=== PATIENT | male | born 1945 | race Caucasian/White ===

== ENCOUNTER 2017-08-18 08:25 | Day surgery (SDC) | payer MEDICARE, OTHER ==
[~2017-08-18 08:25] MED LIST: Midazolam 1 MG/ML 2 ML SDV ONE; fentaNYL 100 MCG/2 ML SDV ONE
[2017-08-18] MEDS ORDERED: fentaNYL 100 MCG/2 ML SDV IV ONE ×3 (08:26→09:33)
[2017-08-18] MEDS ORDERED: Midazolam 1 MG/ML 2 ML SDV IV ONE ×7 (08:26→09:54)
[2017-08-18] MEDS ORDERED: Lactated Ringers 1,000 ML IV SCH (09:00)
[2017-08-18 11:53] VITALS: BP 104/62
--- NOTE | 2017-08-18 15:14 | OR ---
DATE: 08/18/2017 PREOPERATIVE DIAGNOSIS: Personal history of prior colon polyps and rectal bleeding. POSTOPERATIVE DIAGNOSIS: Personal history of prior colon polyps and rectal bleeding. PROCEDURE: Total colonoscopy. ANESTHESIA: Conscious sedation with IV Versed and fentanyl. SPECIMEN: None. OPERATIVE FINDINGS: Normal colonoscopy. RECOMMENDATION: Followup screening colonoscopy in 10 years. However, the patient will be 82 at that time, and screening is usually not recommended after that. He should have a colonoscopy for symptoms only. INDICATION FOR PROCEDURE: This 72-year-old male had a colonoscopy approximately 3 years ago with reported removal of multiple polyps. He does have intermittent rectal bleeding but has noted hemorrhoids. PROCEDURE IN DETAIL: After adequate preparation, a colonoscope was inserted into the rectum. This was passed all the way to the cecum. Confirmation of the cecum was made by visualization of the ileocecal valve, the appendiceal opening, and palpation in the right lower quadrant. A photograph of the cecum was taken to document intubation. The bowel prep was very good on withdrawal of the scope. No abnormalities were noted. He has no masses, polyps, bleeding sites, or evidence of colitis. Rectal examination is normal. He does have external hemorrhoids, but no internal hemorrhoids are particularly noted. Air was suctioned from the colon, and the scope was removed. [facility] /[id number]
== END 2017-08-18 12:00 | disposition home or self-care (01) ==
LOC: DL.ENDO 08:25
PROVIDERS: ATTEND Surgery
DX: Z12.11 Encounter for screening for malignant neoplasm of colon (principal); K64.4 Residual hemorrhoidal skin tags; I10 Essential (primary) hypertension; E78.00 Pure hypercholesterolemia, unspecified; K21.9 Gastro-esophageal reflux disease without esophagitis; E11.9 Type 2 diabetes mellitus without complications; I73.9 Peripheral vascular disease, unspecified; Z86.010 Personal history of colon polyps; Z98.890 Other specified postprocedural states; Z79.84 Long term (current) use of oral hypoglycemic drugs; Z79.899 Other long term (current) drug therapy
CPT/HCPCS: G0105; J2250; J3010; J7120; 45378

== ENCOUNTER 2017-09-12 14:16 | Emergency (ER) | payer MEDICARE, OTHER ==
[2017-09-12 14:34] VITALS: BP 156/82
--- NOTE | 2017-09-12 14:53 | CR ---
Clinical history: 72-year-old male chest pain. Interpretation: Upright AP portable chest film unremarkable. Normal cardiac silhouette without cephalization of vascular flow, signs of alveolar edema or dependen t pleural effusion (external quality assurance monitor leads). No lung mass or hilar lymphadenopathy. No focal lobar pneumonia. No atelectasis/collapse. No pneumothorax.
[2017-09-12 14:59] LABS: CHLORIDE,CL 103 mmol/L (101-111); SODIUM,NA 137 mmol/L (135-145)
--- NOTE | 2017-09-12 15:25 | EDM.PDOC ---
ED HPI GENERAL MEDICAL PROBLEM - General Chief Complaint: Chest Pain Stated Complaint: CHEST PAIN Time Seen by Provider: 09/12/17 14:45 Source of Information: Reports: Patient History Limitations: Reports: No Limitations - History of Present Illness INITIAL COMMENTS - FREE TEXT/NARRATIVE: This 72 yo male patient reports to the ED with a 4 day history of intermittent chest pain and diffuse chest tightness. The patient reports he was putting up some lights last Monday when he believes he may have "stretched" something. Since that time, the patient reports he has been experiencing episodes of chest pains and chest wall tightness. The patient reports that today he has had episodes of sharp pains in the left lateral chest and diffuse tightness across the front of his chest. The patient reports he has been seen for similar symptoms in the past, but has also had a large heart attack in the past. The patient reports his catapult and arresting gear officer gave him a good report card after the last visit. The patient reports he has been taking his medications as prescribed. Onset Date: 09/08/17 Duration: Intermittent Location: Reports: Chest Quality: Reports: Ache (intermittent sharp aching pains throughout his chest), Dull (most of the time (tightness)) Severity: Moderate Improves with: Reports: None Worsens with: Reports: None Associated Symptoms: Reports: No Other Symptoms Mid-Sternal Chest Pain Score (Numeric/FACES): 3 - Related Data Allergies Allergy/AdvReac Type Severity Reaction Status Date / Time No Known Allergies Allergy Verified 08/18/17 08:45 Home Meds: Home Meds Acetaminophen/HYDROcodone [HYDROcodone-Acetaminophen 5-500] 0.5 tab PO DAILY PRN 08/13/14 [History] Baclofen 10 mg PO DAILY 08/13/14 [History] Metoprolol Succinate [Toprol Xl] 50 mg PO DAILY 08/13/14 [History] Pantoprazole [ProTONIX] 40 mg PO BID 08/13/14 [History] Simvastatin [Zocor] 40 mg PO DAILY 08/13/14 [History] amLODIPine [Norvasc] 5 mg PO DAILY 08/13/14 [History] buPROPion [Wellbutrin XL] 150 mg PO DAILY 08/13/14 [History] metFORMIN [Glucophage] 1,000 mg PO BID 08/13/14 [History] Cyclobenzaprine [Flexeril] 1 tab PO TID PRN 10/14/14 [History] Pramipexole [Mirapex] 1 tab PO BEDTIME 10/14/14 [History] Past Medical History HEENT History: Reports: Impaired Vision Cardiovascular History: Reports: High Cholesterol, Hypertension, [place], PVD Respiratory History: Reports: None Gastrointestinal History: Reports: Colon Polyp, GERD Genitourinary History: Reports: None, BPH Musculoskeletal History: Reports: Arthritis, Back Pain, Chronic Neurological History: Reports: Other (See Below) Other Neuro History: [facility] Psychiatric History: Reports: None Endocrine/Metabolic History: Reports: Diabetes, Type II Hematologic History: Reports: None Immunologic History: Reports: None Oncologic (Cancer) History: Reports: None Dermatologic History: Reports: None - Infectious Disease History Infectious Disease History: Reports: Chicken Pox, Measles, Mumps, Shingles - Past Surgical History HEENT Surgical History: Reports: Cataract Surgery, Tonsillectomy Cardiovascular Surgical History: Reports: Other (See Below) Other Cardiovascular Surgeries/Procedures: ARTERIAL STENTS Respiratory Surgical History: Reports: None GI Surgical History: Reports: Cholecystectomy, Colonoscopy, Polypectomy Musculoskeletal Surgical History: Reports: Other (See Below) Other Musculoskeletal Surgeries/Procedures:: HX OF HIP BURSA INJECTIONS. back and neck surg Social & Family History - Family History Family Medical History: Noncontributory Cardiac: Reports: CAD Neurological: Reports: Other (See Below) Other Neurological Family History: RESTLESS LEG SYNDROME - Tobacco Use Smoking Status *Q: Current Every Day Smoker Years of Tobacco use: 50 Packs/Tins Daily: 0.5 - Caffeine Use Caffeine Use: Reports: Coffee, Soda, Tea Caffeine Use Comment: 60oz - Alcohol Use Days Per Week of Alcohol Use: 0 - Recreational Drug Use Recreational Drug Use: No ED ROS GENERAL - Review of Systems Review Of Systems: ROS reveals no pertinent complaints other than HPI. ED EXAM, GENERAL - Physical Exam Exam: See Below Exam Limited By: No Limitations General Appearance: Alert, WD/WN, Moderate Distress Eye Exam: Bilateral Eye: EOMI, Normal Inspection, PERRL Ears: Normal External Exam, Normal Canal, Hearing Grossly Normal, Normal TMs Nose: Normal Inspection, Normal Mucosa, No Blood Throat/Mouth: Normal Inspection, Normal Lips, Normal Teeth, Normal Gums, Normal Oropharynx, Normal Voice, No Airway Compromise Head: Atraumatic, Normocephalic Neck: Normal Inspection, Supple, Non-Tender, Full Range of Motion Respiratory/Chest: No Respiratory Distress, Lungs Clear, Normal Breath Sounds, No Accessory Muscle Use, Chest Non-Tender Cardiovascular: Normal Peripheral Pulses, Regular Rate, Rhythm, No Edema, No Gallop, No JVD, No Murmur, No Rub GI/Abdominal: Normal Bowel Sounds, Soft, Non-Tender, No Organomegaly, No Distention, No Abnormal Bruit, No Mass (Male) Exam: Deferred Rectal (Males) Exam: Deferred Back Exam: Normal Inspection, Full Range of Motion, NT Extremities: Normal Inspection, Normal Range of Motion, Non-Tender, Normal Capillary Refill, Pedal Edema (2+ chronic) Neurological: Alert, Oriented, CN II-XII Intact, Normal Cognition, Normal Gait, Normal Reflexes, No Motor/Sensory Deficits Psychiatric: Normal Affect, Normal Mood Skin Exam: Warm, Dry, Intact, Normal Color, No Rash Lymphatic: No Adenopathy Course - Vital Signs Last Recorded V/S: Last Vital Signs Temp 36.8 C 09/12/17 14:32 Pulse 106 H 09/12/17 14:32 Resp 14 09/12/17 14:32 BP 156/82 H 09/12/17 14:32 Pulse Ox 98 09/12/17 14:32 - Orders/Labs/Meds Orders: Active Orders 24 hr Category Date Time Status EKG Documentation Completion [RC] URGENT Care 09/12/17 14:18 Active Labs: Laboratory Tests 09/12/17 09/12/17 Range/Units 14:29 14:29 WBC 6.7 (5.0-10.0) 10^3/uL RBC 4.62 (4.6-6.2) 10^6/uL Hgb 12.6 L (14.0-18.0) g/dL Hct 39.1 L (40.0-54.0) % MCV 84.6 (80-100) fL MCH 27.3 (27.0-34.0) pg MCHC 32.2 L (33.0-35.0) g/dL Plt Count 189 (150-450) 10^3/uL Neut % (Auto) 37.2 L (42.2-75.2) % Lymph % (Auto) 47.7 (20.5-50.1) % [place] % (Auto) 12.9 H (2-8) % Eos % (Auto) 1.7 (1.0-3.0) % Baso % (Auto) 0.5 (0.0-1.0) % Sodium 137 (135-145) mmol/L Potassium 3.6 (3.6-5.0) mmol/L Chloride 103 (101-111) mmol/L Carbon Dioxide 25.0 (21.0-31.0) mmol/L Anion Gap 12.6 BUN 11 (7-18) mg/dL Creatinine 1.0 (0.6-1.3) mg/dL Est Cr Clr Drug Dosing 82.15 mL/min Estimated GFR (MDRD) > 60 BUN/Creatinine Ratio 11.00 Glucose 198 H (74-105) mg/dL Calcium 9.2 (8.4-10.2) mg/dl Total Bilirubin 0.5 (0.2-1.0) mg/dL AST 32 (10-42) IU/L ALT 24 (10-60) IU/L Alkaline Phosphatase 43 (42-121) IU/L Troponin I < 0.02 (0.00-0.02) ng/ml Total Protein 7.6 (6.7-8.2) g/dl Albumin 4.4 (3.2-5.5) g/dl Globulin 3.2 Albumin/Globulin Ratio 1.38 Departure - Departure Time of Disposition: 15:22 Disposition: Home, Self-Care 01 Condition: Fair Clinical Impression: Nonspecific chest pain Instructions: Nonspecific Chest Pain, [id number] Forms: ED Department Discharge Care Plan Goals: The patient was advised of the examination, lab, EKG and x-ray results during the visit. The patient was encouraged to continue to monitor his symptoms. The patient was encouraged to follow-up with his primary care facility or his catapult and arresting gear officer for continued evaluation and further management. If the patient has any additional symptoms or concerns, the patient should either visit his primary care facility or return to the emergency department. - My Orders Last 24 Hours: My Active Orders 09/12/17 14:18 EKG Documentation Completion [RC] URGENT - Assessment/Plan Last 24 Hours: My Active Orders 09/12/17 14:18 EKG Documentation Completion [RC] URGENT
--- NOTE | 2017-09-13 13:34 | EKG ---
09/12/2017 - ARMOND LOPEZ 12-lead EKG shows normal sinus rhythm with no significant ST elevation or ST depression with heart rate of 99. [facility] /[id number]
== END 2017-09-12 15:45 | disposition home or self-care (01) ==
LOC: DL.ED 14:16
DX: R07.89 Other chest pain (principal); E78.00 Pure hypercholesterolemia, unspecified; I10 Essential (primary) hypertension; E11.9 Type 2 diabetes mellitus without complications; F17.210 Nicotine dependence, cigarettes, uncomplicated; Z79.899 Other long term (current) drug therapy; Z79.84 Long term (current) use of oral hypoglycemic drugs
CPT/HCPCS: 36415; 71010; 80053; 84484; 85025; 93005; 93010; 99283; 99285

== ENCOUNTER 2020-02-14 15:00 | Emergency (ER) | payer MEDICARE, OTHER ==
[~2020-02-14 15:00] MED LIST changes: -Midazolam 1 MG/ML 2 ML SDV ONE; +Ondansetron 4 MG/2 ML SDV IVPUSH ONE; +Sodium Chloride 0.9% 10 ML Syringe FLUSH PRN; -fentaNYL 100 MCG/2 ML SDV ONE
[2020-02-14 15:03] VITALS: BP 160/72; PULSE 125
[2020-02-14 15:42] LABS: ANION GAP 17.8 mEq/L (7-13); CHLORIDE,CL 98 mmol/L (98-107); SODIUM,NA 136 mmol/L (136-145)
--- NOTE | 2020-02-14 15:50 | CR ---
EXAMINATION: Chest 1V Frontal SEX: Male AGE: 75 years CLINICAL HISTORY: 75-year-old male with chest pain and shortness of breath Interpretation: No acute new cardiopulmonary abnormality identified in the interval since 26 April 2019 comparison exam. Normal cardiac silhouette without pulmonary vascular congestion, cephalization of flow, alveolar edema or dependent new pleural fluid accumulation. (External rock contractor leads) No new lung mass, hilar lymphadenopathy or focal lobar pneumonia. No atelectasis/collapse. No pneumothorax or pneumomediastinum. Midline tracheal bronchial airway unremarkable. 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
--- NOTE | 2020-02-14 16:16 | EDM.PDOC ---
ED HPI GENERAL MEDICAL PROBLEM - General Chief Complaint: Abdominal Pain Stated Complaint: ABDOMINAL Time Seen by Provider: 02/14/20 15:50 Source of Information: Reports: Patient History Limitations: Reports: No Limitations - History of Present Illness INITIAL COMMENTS - FREE TEXT/NARRATIVE: This 75 yo male patient was initially seen in the [facility] and sent to the ED due to a 3 day history of abdominal pain, nausea/vomiting, diarrhea and chest tightness. The patient reports he has not vomited since Monday, but continues Onset Date: 02/12/20 Duration: Constant Location: Reports: Chest, Abdomen Quality: Reports: Ache, Dull Severity: Moderate Improves with: Reports: None Worsens with: Reports: None Context: Reports: Other Associated Symptoms: Reports: Nausea/Vomiting, Other (diarrhea) Abdomen Pain Score (Numeric/FACES): 7 - Related Data Allergies Allergy/AdvReac Type Severity Reaction Status Date / Time No Known Allergies Allergy Verified 02/14/20 15:03 Home Meds: Home Meds Acetaminophen/HYDROcodone [HYDROcodone-Acetaminophen 5-500] 0.5 tab PO DAILY PRN 08/13/14 [History] Metoprolol Succinate [Toprol Xl] 50 mg PO DAILY 08/13/14 [History] Pantoprazole [ProTONIX] 40 mg PO BID 08/13/14 [History] Simvastatin [Zocor] 40 mg PO DAILY 08/13/14 [History] amLODIPine [Norvasc] 5 mg PO DAILY 08/13/14 [History] metFORMIN [Glucophage] 1,000 mg PO BID 08/13/14 [History] Aspirin [Halfprin] 81 mg PO BRK 09/12/17 [History] Losartan [Cozaar] 100 mg PO DAILY 09/12/17 [History] Tamsulosin HCl 0.4 mg PO DAILY 09/12/17 [History] Triamterene/Hydrochlorothiazid [Triamterene-HCTZ 37.5-25 MG] 1 tab PO DAILY 09/17 [History] Past Medical History HEENT History: Reports: Impaired Vision Cardiovascular History: Reports: High Cholesterol, Hypertension, [place], PVD Respiratory History: Reports: None Gastrointestinal History: Reports: Colon Polyp, GERD Genitourinary History: Reports: BPH Musculoskeletal History: Reports: Arthritis, Back Pain, Chronic Neurological History: Reports: Other (See Below) Other Neuro History: [facility] Psychiatric History: Reports: None Endocrine/Metabolic History: Reports: Diabetes, Type II Hematologic History: Reports: None Immunologic History: Reports: None Oncologic (Cancer) History: Reports: None Dermatologic History: Reports: None - Infectious Disease History Infectious Disease History: Reports: Chicken Pox, Measles - Past Surgical History HEENT Surgical History: Reports: Cataract Surgery, Tonsillectomy Cardiovascular Surgical History: Reports: Other (See Below) Other Cardiovascular Surgeries/Procedures: ARTERIAL STENTS Respiratory Surgical History: Reports: None GI Surgical History: Reports: Cholecystectomy, Colonoscopy, Polypectomy Musculoskeletal Surgical History: Reports: Other (See Below) Other Musculoskeletal Surgeries/Procedures:: HX OF HIP BURSA INJECTIONS. back and neck surg Social & Family History - Family History Family Medical History: Noncontributory Cardiac: Reports: CAD Neurological: Reports: Other (See Below) Other Neurological Family History: RESTLESS LEG SYNDROME - Tobacco Use Smoking Status *Q: Current Every Day Smoker Years of Tobacco use: 40 Packs/Tins Daily: 0.5 - Caffeine Use Caffeine Use: Reports: None Caffeine Use Comment: 60oz - Recreational Drug Use Recreational Drug Use: No ED ROS GENERAL - Review of Systems Review Of Systems: Comprehensive ROS is negative, except as noted in HPI. ED EXAM, GI/ABD - Physical Exam Exam: See Below Exam Limited By: No Limitations General Appearance: Alert, WD/WN, Mild Distress Eyes: Bilateral: Normal Appearance, EOMI Ears: Normal External Exam, Normal Canal, Hearing Grossly Normal, Normal TMs Nose: Normal Inspection, Normal Mucosa, No Blood Throat/Mouth: Normal Inspection, Normal Lips, Normal Teeth, Normal Gums, Normal Oropharynx, Normal Voice, No Airway Compromise Head: Atraumatic, Normocephalic Neck: Normal Inspection, Supple, Non-Tender, Full Range of Motion Respiratory/Chest: No Respiratory Distress, Lungs Clear, Normal Breath Sounds, No Accessory Muscle Use, Chest Non-Tender Cardiovascular: Normal Peripheral Pulses, Regular Rate, Rhythm, No Edema, No Gallop, No JVD, No Murmur, No Rub GI/Abdominal Exam: Normal Bowel Sounds, No Organomegaly, No Distention, No Abnormal Bruit, No Mass, Pelvis Stable, Tender (diffuse abdominal tenderness) (Male) Exam: Deferred Rectal (Males) Exam: Deferred Back Exam: Normal Inspection, Full Range of Motion, NT Extremities: Normal Inspection, Normal Range of Motion, Non-Tender, Normal Capillary Refill, No Pedal Edema Neurological: Alert, Oriented, CN II-XII Intact, Normal Cognition, Normal Gait, Normal Reflexes, No Motor/Sensory Deficits Psychiatric: Normal Affect, Normal Mood Skin Exam: Warm, Dry, Intact, Normal Color, No Rash Lymphatic: No Adenopathy Course - Vital Signs Last Recorded V/S: Last Vital Signs Temp 37.2 C 02/14/20 14:57 Pulse 125 H 02/14/20 14:57 Resp 20 02/14/20 14:57 BP 160/72 H 02/14/20 14:57 Pulse Ox 99 02/14/20 14:57 - Orders/Labs/Meds Orders: Active Orders 24 hr Category Date Time Status EKG Documentation Completion [RC] STAT Care 02/14/20 14:56 Active CULTURE BLOOD [BC] Stat Lab 02/14/20 15:11 Received REFLEX LACTIC ACID YES OR NO [CHEM] Routine Lab 02/14/20 15:52 Received Sodium Chloride 0.9% [Saline Flush] Med 02/14/20 15:00 Active 10 ml FLUSH ASDIRECTED PRN Isolation [COMM] Routine Oth 02/14/20 15:20 Active Saline Lock Insert [OM.PC] Routine Oth 02/14/20 15:00 Ordered Medication Orders Sodium Chloride (Saline Flush) 10 ml FLUSH ASDIRECTED PRN PRN Reason: Keep Vein Open Last Admin: 02/14/20 15:19 Dose: 10 ml Labs: Laboratory Tests 02/14/20 02/14/20 02/14/20 Range/Units 15:11 15:11 15:11 WBC 7.2 (5.0-10.0) 10^3/uL RBC 4.72 (4.6-6.2) 10^6/uL Hgb 13.0 L (14.0-18.0) g/dL Hct 39.5 L (40.0-54.0) % MCV 83.7 (80-100) fL MCH 27.5 (27.0-34.0) pg MCHC 32.9 L (33.0-35.0) g/dL Plt Count 178 (150-450) 10^3/uL Neut % (Auto) 43.0 (42.2-75.2) % Lymph % (Auto) 39.9 (20.5-50.1) % [place] % (Auto) 15.0 H (2-8) % Eos % (Auto) 1.7 (1.0-3.0) % Baso % (Auto) 0.4 (0.0-1.0) % Sodium 136 (136-145) mmol/L Potassium 3.8 (3.5-5.1) mmol/L Chloride 98 (98-107) mmol/L Carbon Dioxide 24 (21-32) mmol/L Anion Gap 17.8 H (7-13) mEq/L BUN 25 H (7-18) mg/dL Creatinine 1.62 H (0.70-1.30) mg/dL Est Cr Clr Drug Dosing 47.22 mL/min Estimated GFR (MDRD) 42 BUN/Creatinine Ratio 15.4 (No establ ref range) Glucose 126 H (74-99) mg/dL Lactic Acid 3.0 H* (0.4-2.0) mmol/L Calcium 8.7 (8.5-10.1) mg/dL Total Bilirubin 0.5 (0.2-1.0) mg/dL AST 33 (15-37) U/L ALT 43 (16-63) U/L Alkaline Phosphatase 60 (46-116) U/L Troponin I < 0.017 (0.000-0.056) ng/mL Total Protein 7.9 (6.4-8.2) g/dL Albumin 4.4 (3.4-5.0) g/dL Globulin 3.5 Albumin/Globulin Ratio 1.3 Amylase 86 (25-115) U/L Lipase 188 (73-393) U/L Urine Color (YELLOW) Urine Appearance (CLEAR) Urine pH (5.0-9.0) Ur Specific [place] (1.005-1.030) Urine Protein (NEGATIVE) Urine Glucose (UA) (NEGATIVE) Urine Ketones (NEGATIVE) Urine Occult Blood (NEGATIVE) Urine Nitrite (NEGATIVE) Urine Bilirubin (NEGATIVE) Urine Urobilinogen (0.2-1.0) mg/dL Ur Leukocyte Esterase (NEGATIVE) 20 Range/Units 15:41 WBC (5.0-10.0) 10^3/uL RBC (4.6-6.2) 10^6/uL Hgb (14.0-18.0) g/dL Hct (40.0-54.0) % MCV (80-100) fL MCH (27.0-34.0) pg MCHC (33.0-35.0) g/dL Plt Count (150-450) 10^3/uL Neut % (Auto) (42.2-75.2) % Lymph % (Auto) (20.5-50.1) % Mason % (Auto) (2-8) % Eos % (Auto) (1.0-3.0) % Baso % (Auto) (0.0-1.0) % Sodium (136-145) mmol/L Potassium (3.5-5.1) mmol/L Chloride (98-107) mmol/L Carbon Dioxide (21-32) mmol/L Anion Gap (7-13) mEq/L BUN (7-18) mg/dL Creatinine (0.70-1.30) mg/dL Est Cr Clr Drug Dosing mL/min Estimated GFR (MDRD) BUN/Creatinine Ratio (No establ ref range) Glucose (74-99) mg/dL Lactic Acid (0.4-2.0) mmol/L Calcium (8.5-10.1) mg/dL Total Bilirubin (0.2-1.0) mg/dL AST (15-37) U/L ALT (16-63) U/L Alkaline Phosphatase (46-116) U/L Troponin I (0.000-0.056) ng/mL Total Protein (6.4-8.2) g/dL Albumin (3.4-5.0) g/dL Globulin Albumin/Globulin Ratio Amylase (25-115) U/L Lipase (73-393) U/L Urine Color Yellow (YELLOW) Urine Appearance Clear (CLEAR) Urine pH 5.5 (5.0-9.0) Ur Specific [place] 1.015 (1.005-1.030) Urine Protein Negative (NEGATIVE) Urine Glucose (UA) Negative (NEGATIVE) Urine Ketones Negative (NEGATIVE) Urine Occult Blood Negative (NEGATIVE) Urine Nitrite Negative (NEGATIVE) Urine Bilirubin Negative (NEGATIVE) Urine Urobilinogen 0.2 (0.2-1.0) mg/dL Ur Leukocyte Esterase Negative (NEGATIVE) Meds: Medications Generic Name Dose Route Start Last Admin Trade Name Freq PRN Reason Stop Dose Admin Sodium Chloride 10 ml 02/14/20 15:00 02/14/20 15:19 Saline Flush FLUSH 10 ml ASDIRECTED PRN Administration Keep Vein Open Discontinued Medications Generic Name Dose Route Start Last Admin Trade Name Alla PRN Reason Stop Dose Admin Ondansetron HCl 4 mg 02/14/20 15:00 02/14/20 15:19 Zofran IVPUSH 02/14/20 15:01 4 mg ONETIME ONE Administration - Re-Assessments/Exams Free Text/Narrative Re-Assessment/Exam: 02/14/20 17:45 PROCEDURE INFORMATION: Exam: CT Abdomen And Pelvis Without Contrast Exam date and time: 02/14/2020 5:22 PM Age: 75 years old Clinical indication: Other: Diffuse abd pain TECHNIQUE: Imaging protocol: Computed tomography of the abdomen and pelvis without contrast. Radiation optimization: All CT scans at this facility use at least one of these dose optimization techniques: automated exposure control; mA and/or kV adjustment per patient size (includes targeted exams where dose is matched to clinical indication); or iterative reconstruction. COMPARISON: CT Abdomen Pelvis w Cont 06/23/2015 9:25 AM FINDINGS: Lungs: Atelectatic changes noted within both lung bases. Liver: Mild hepatomegaly is present. Gallbladder and bile ducts: There has been a cholecystectomy. Pancreas: The pancreas is normal. Spleen: The spleen is normal. Adrenals: The adrenal glands are normal. Kidneys and ureters: The kidneys are normal. Nonobstructing renal calcifications noted bilaterally measuring up to 3 mm. Stomach and bowel: The stomach is normal. The duodenum is unremarkable. Mild diverticulosis is present in the distal colon. Appendix: No evidence of appendicitis. Intraperitoneal space: Normal. No significant fluid collection. Vasculature: The vasculature demonstrates diffuse moderate atherosclerotic calcification. Lymph nodes: Unremarkable. No enlarged lymph nodes. Bladder: There is mild bladder wall thickening consistent with incomplete distension, chronic outflow obstruction, or cystitis. Reproductive: The prostate demonstrates mild nonspecific enlargement. The seminal vesicles are normal. Bones/joints: Posterior fusion of the lumbar spine present. The lumbar spine demonstrates moderate degenerative changes at multiple levels. Soft tissues: Soft tissues are normal. IMPRESSION: 1. Mild hepatomegaly is present. 2. There is mild bladder wall thickening consistent with incomplete distension, chronic outflow obstruction, or cystitis. 3. The prostate demonstrates mild nonspecific enlargement. 4. Mild diverticulosis is present in the distal colon. 5. Nonobstructing renal calcifications noted bilaterally measuring up to 3 mm. Thank you for allowing us to participate in the care of your patient. Dictated and Authenticated by: Bennett Calderon DO 02/14/2020 5:40 PM Central Time ([place] & [place]) Departure - Departure Time of Disposition: 17:51 Disposition: Home, Self-Care 01 Condition: Fair Clinical Impression: Gastritis Qualifiers: Gastritis type: unspecified gastritis Chronicity: acute Gastritis bleeding: without bleeding Qualified Code(s): K29.00 - Acute gastritis without bleeding - Discharge Information *PRESCRIPTION DRUG MONITORING PROGRAM REVIEWED*: Not Applicable *COPY OF PRESCRIPTION DRUG MONITORING REPORT IN PATIENT SUDARSHAN: Not Applicable Instructions: Viral Gastroenteritis, Adult, [id number] Forms: ED Department Discharge Care Plan Goals: The patient was advised of the examination, lab and CT results. The patient was given an IV dose of Zofran for nausea. The patient was encouraged to stick to a BRAT diet (Bananas, Rice, Applesauce and [place]) with small frequent sips of fluids. If the patient has any additional symptoms or concerns, the patient should either return to the emergency department or visit his primary care facility. Sepsis Event Note - Evaluation Sepsis Screening Result: No Definite Risk - Focused Exam Vital Signs: Vital Signs Temp Pulse Resp BP Pulse Ox 02/14/20 14:57 37.2 C 125 H 20 160/72 H 99 Date Exam was Performed: 02/14/20 Time Exam was Performed: 17:45 - My Orders Last 24 Hours: My Active Orders 02/14/20 14:56 EKG Documentation Completion [RC] STAT 02/14/20 15:00 Sodium Chloride 0.9% [Saline Flush] 10 ml FLUSH ASDIRECTED PRN Saline Lock Insert [OM.PC] Routine 02/14/20 15:11 CULTURE BLOOD [BC] Stat 02/14/20 15:20 Isolation [COMM] Routine 02/14/20 15:52 REFLEX LACTIC ACID YES OR NO [CHEM] Routine - Assessment/Plan Last 24 Hours: My Active Orders 02/14/20 14:56 EKG Documentation Completion [RC] STAT 02/14/20 15:00 Sodium Chloride 0.9% [Saline Flush] 10 ml FLUSH ASDIRECTED PRN Saline Lock Insert [OM.PC] Routine 02/14/20 15:11 CULTURE BLOOD [BC] Stat 02/14/20 15:20 Isolation [COMM] Routine 02/14/20 15:52 REFLEX LACTIC ACID YES OR NO [CHEM] Routine
== END 2020-02-14 17:58 | disposition home or self-care (01) ==
LOC: DL.ED 15:00
DX: K29.00 Acute gastritis without bleeding (principal); E78.00 Pure hypercholesterolemia, unspecified; I10 Essential (primary) hypertension; I25.2 Old myocardial infarction; E11.51 Type 2 diabetes mellitus with diabetic peripheral angiopathy without gangrene; K21.9 Gastro-esophageal reflux disease without esophagitis; M19.90 Unspecified osteoarthritis, unspecified site; F17.210 Nicotine dependence, cigarettes, uncomplicated; Z79.82 Long term (current) use of aspirin; Z79.84 Long term (current) use of oral hypoglycemic drugs; Z79.899 Other long term (current) drug therapy
CPT/HCPCS: 36415; 71045; 74176; 80053; 81003; 82150; 82272; 83605; 83690; 84484; 85025; 87040; 87804; 93005; 96374; 99284; J2405; 99283